=== PATIENT | female | born 1985 | race Caucasian/White ===

== ENCOUNTER 2019-11-23 10:16 | Outpatient (CLI) | payer MEDICAID, SELFPAY ==
[2019-11-23 11:10] LABS: Alanine Aminotransferase 35 U/L (14-59); Albumin Level 3.8 g/dL (3.4-5.0); Alkaline Phosphatase 38 U/L (46-116); Anion Gap 10 mmol/L (8-16); Aspartate Amino Transferase 19 U/L (15-37); Bilirubin,Total 0.8 mg/dL (0.00-1.00); Blood Urea Nitrogen 9 mg/dL (7-18); Calcium 8.8 mg/dL (8.5-10.1); Carbon Dioxide 27 mmol/L (21-32); Chloride 105 mmol/L (98-108); Cholesterol 143 mg/dL (0-200); Estimated Glomerular Filt Rate > 60; Glucose 128 mg/dL (70-99); HDL Direct 38 mg/dL (40-60); LDL Cholesterol Calculated 81 mg/dL (<130); Osmolality Calculated 294 mOsm/kg (285-295); Potassium 4.3 mmol/L (3.5-5.1); Sodium 142 mmol/L (136-145); Triglycerides 118 mg/dL (0-150)
[2019-11-23 11:38] LABS: Hematocrit 44.9 % (35.0-49.0); Hemoglobin 15.4 g/dL (12.0-15.0); Mean Corpuscular HGB Conc 34.3 g/dL (32.0-36.0); Mean Corpuscular Hemoglobin 30.6 pg (27.0-31.0); Mean Corpuscular Volume 89.1 fL (78.0-102.0); Mean Platelet Volume 12.3 fl (9.2-11.8); Platelet Count Result 191 K/mm3 (150-420); Red Blood Count 5.04 M/mm3 (4.20-5.40); Red Cell Distribution Width 12.1 % (11.6-14.4); White Blood Count 9.9 K/mm3 (4.8-10.8)
== END 2019-11-23 10:17 | disposition home or self-care (01) ==
PROVIDERS: PCP Family Medicine; Visit Provider Family Medicine
DX: N92.1 Excessive and frequent menstruation with irregular cycle (principal); E66.3 Overweight
CPT/HCPCS: 36415; 80053; 80061; 85027

== ENCOUNTER 2019-12-15 12:35 | Outpatient (CLI) | payer OTHER, SELFPAY ==
--- NOTE | ~2019-12-15 | US_ITS ---
EXAMINATION: US pelvic complete w TV DATE: 12/15/2019 14:00 INDICATION: Thick and perineal pain. Irregular menstrual cycle. TECHNIQUE: Multiple transabdominal and endovaginal sonographic images of the pelvis were obtained. COMPARISON: None. FINDINGS: The uterus measures 10.4 x 5.0 x 5.4 cm. The endometrial complex measures 7 mm in thickness. The rig ht ovary measures 3.5 x 2.3 x 2.4 cm. 1.7 cm hypoechoic likely cysts/follicle in the right ovary. The left ovary measures 2.6 x 1.8 x 2.8 cm. There is normal vascular flow in the ovaries. There is no fr ee fluid in the pelvis. IMPRESSION: 1. Normal pelvic ultrasound with 1.7 cm right ovarian cyst/follicle. Reviewed, dictated and finalized at location A.
[2019-12-18 07:23] LABS: T4 Thyroxine 7.4 mcg/dL (5.1-11.9)
[2019-12-19 05:48] LABS: LH 2.1 mIU/mL (***); Progesterone 0.4 ng/mL (***)
== END 2019-12-15 12:36 | disposition home or self-care (01) ==
PROVIDERS: PCP Family Medicine; Visit Provider Obstetrics & Gynecology
DX: R10.2 Pelvic and perineal pain (principal); R19.00 Intra-abdominal and pelvic swelling, mass and lump, unspecified site; N92.6 Irregular menstruation, unspecified
CPT/HCPCS: 36415; 76830; 76856; 83001; 83002; 84144; 84436; 84443

== ENCOUNTER 2020-03-01 14:06 | Outpatient (CLI) | payer MEDICAID, SELFPAY ==
[2020-03-02 18:58] LABS: SARS-CoV-2 RNA PCR Negative
== END 2020-03-01 14:07 | disposition home or self-care (01) ==
PROVIDERS: PCP Family Medicine; Visit Provider Family Medicine
DX: Z20.828 Contact with and (suspected) exposure to other viral communicable diseases (principal)
CPT/HCPCS: 87635; C9803; U0003

== ENCOUNTER → 2020-12-17 03:17 | Outpatient (CLI) | payer BC, MEDICAID, SELFPAY ==
[2020-12-17 19:14] LABS: SARS-CoV-2 RNA PCR Negative
== END ==
PROVIDERS: PCP Internal Medicine; Visit Provider Obstetrics & Gynecology
DX: Z20.822 Contact with and (suspected) exposure to COVID-19 (principal)
CPT/HCPCS: C9803; U0003; U0005

== ENCOUNTER 2020-12-17 09:16 | Outpatient (CLI) | payer BC, MEDICAID, SELFPAY ==
[2020-12-17 09:50] LABS: Hematocrit 45.1 % (37.0-47.0); Hemoglobin 15.6 g/dL (12.0-15.0)
== END 2020-12-17 09:17 | disposition home or self-care (01) ==
LOC: ANHSURGERY 09:22
PROVIDERS: PCP Internal Medicine; Visit Provider Obstetrics & Gynecology
DX: Z01.812 Encounter for preprocedural laboratory examination (principal); N92.6 Irregular menstruation, unspecified
CPT/HCPCS: 36415; 85014; 85018

== ENCOUNTER 2020-12-20 01:40 | Day surgery (SDC) | payer BC, MEDICAID, SELFPAY ==
[2020-12-12 11:44] VITALS: BMI 39.1
--- NOTE | 2020-12-17 16:20 | PM.IMHP ---
H&P: HPI History of Present Illness Date/Time: 12/17/20 16:20 35-year-old 2 para 2 admitted for laparoscopic tubal ligation, hysteroscopy, dilatation curettage Hayley ablation. Patient desires permanent and irreversible sterilization. She has had 2 previous vaginal deliveries and understands the permanence and irreversibility of this. She has also had irregular periods and medical therapy has been unhelpful. Risks and benefits of these procedures were reviewed including but not exclusive of , aspiration pneumonia bleeding, bleeding cut and attends fusion, perforation injury to bowel, bladder, ureters, or other internal organs with need for open laparotomy. She received the ACOG handout entitled sterilization for females, hysteroscopy, dilatation curettage respectively. She received the Hayley handout and had all questions answered. She asked to proceed Chief Complaint: desires sterilization and excessive heavy bleeding refractory to medical therapy Review of Systems Review of Systems: All systems reviewed & are unremarkable except as noted in HPI and below [facility] Social History Social History Smoking packs per day: 0.5 Smoking cigarettes per day: 10.0 Years smoked: 10 Smoking pack-years: 5.00 Smoking status: Former smoker Tobacco type: cigarettes and e-cigarettes/vaping Smoking end date: 01/13/14 Additional smoking assessment comments: VAPES NOW Alcohol intake: current Drinks per week: 6 Substance use: never Substance use type: does not use Spiritual care concerns: No Meds Home Medications and Allergies Home Medications Medication Instructions Recorded Confirmed Type sertraline 100 mg PO HS 12/12/20 12/12/20 History Allergies Allergy/AdvReac Type Severity Reaction Status Date / Time PROCHLORPERAZINE EDISYLATE Allergy Severe Siezure Uncoded 12/12/20 11:42 PROCHLORPERAZINE MALEATE Allergy Severe Siezure Uncoded 12/12/20 11:42 Exam Const: General: no acute distress Eyes: General: appearance normal, both eyes and all related structures Neck: Neck: supple and no JVD Thyroid: thyroid normal Resp: Effort & Inspection: normal respiratory effort Auscultation: clear to auscultation bilaterally Cardio: Rate: regular rate Rhythm: regular rhythm GI: Inspection: non-distended GI Palp: Yes Soft to palpation, No Tenderness to palpation present (GI) and No Guarding due to palpation present (GI) Auscultation: normal bowel sounds : External Female Exam: normal external appearance Speculum Exam - Vagina: normal appearance of the vagina Speculum Exam - Cervix: Cervical os closed Bimanual exam- vagina & uterus: enlarged Bimanual Exam- Adnexa, other: normal adnexae Skin: General skin exam: no rashes or lesions noted Extrem: General: normal to inspection and no edema Psych: Mental Status: mental status grossly normal Affect: normal affect Assessment and Plan Additional Plan impression: Multiparous patient with bleeding who desires permanent sterilization and ablation Plan: Laparoscopic tubal ligation and uterine ablation
[2020-12-20] VITALS (9 sets, daily range): BP systolic 122–147; BP diastolic 69–93; PULSE 62–89; RESP 16–23; TEMP 36.4–36.7; O2SAT 95–100
--- NOTE | 2020-12-20 06:02 | WPDHPUPDATE1 ---
History and Physical Update Update Date/Time: 12/20/20 06:02 History and Physical has been reviewed, including an updated exam of the patient. There are NO changes in the patient's condition. Risks, benefits, and alternatives have been discussed and questions answered. Patient agrees to proceed with procedure.
[2020-12-20] MEDS: ACETAMINOPHEN 500 MG TABLET 1000 MG PO (08:45)
[2020-12-20] MEDS: LACTATED RINGERS 1,000 ML 30 ML IV CONT ×2 (08:50→10:34)
--- NOTE | 2020-12-20 09:10 | P.PNAN_ITS ---
Anes - Initial Pre Proc Eval Procedure: Operation Date: 12/20/20 10:00 Proposed Procedures p Laparoscopic Bilateral Tubal Ligation with Fallopian Tube Rings - Kamron Mcclendon MD s Hysteroscopy Dilation and Curettage Endometrial Ablation Hayley - Kamron Mcclendon MD Date/Time: 12/20/20 09:10 Surgeon: Kamron Mcclendon MD Pre Op Diagnosis: desires sterilization, irregular bleeding Patient Data Age: 35 Gender: F Height: 1.75 m Weight: 123.4 kg Last Vital Signs Temp 36.7 C 12/20/20 08:59 Pulse 71 12/20/20 08:59 BP 133/87 12/20/20 08:59 Pulse Ox 98 12/20/20 08:59 Allergies Allergy/AdvReac Type Severity Reaction Status Date / Time PROCHLORPERAZINE EDISYLATE Allergy Severe Siezure Uncoded 12/20/20 08:57 PROCHLORPERAZINE MALEATE Allergy Severe Siezure Uncoded 12/20/20 08:57 Home Medications Medication Instructions Recorded Confirmed Type sertraline 100 mg PO HS 12/12/20 12/20/20 History hydrocodone-acetaminophen 1 tablet PO Q4H PRN #30 tablet 12/20/20 Rx Patient hx anesthesia problems: none Family hx anesthesia problems: none Results Review: All pre-operative results and documents have been reviewed as part of the pre-operative evaluation. [facility], [facility] Past Medical History Medical History Anxiety Depression Diabetes Hypertension Morbid obesity Social History Social History Smoking packs per day: 0.5 Smoking cigarettes per day: 10.0 Years smoked: 10 Smoking pack-years: 5.00 Smoking status: Former smoker Tobacco type: cigarettes and e-cigarettes/vaping Smoking end date: 01/13/14 Additional smoking assessment comments: VAPES NOW Alcohol intake: current Drinks per week: 6 Substance use: never Substance use type: does not use Living arrangements: with family Spiritual care concerns: No Anes - Eval Final PreProcedure Day of Procedure 12/20/20 09:10 Patient weight: morbidly obese Heart: regular rate and rhythm Lungs: clear to auscultation Airway: Mallampati scale class II Neurological: alert and oriented Last oral intake: >/= 8 hours ASA classification: III Emergent: no Anesthetic plan: proceed Anesthesia type and monitoring: general ETT and standard monitoring Results Review: All pre-operative results and documents have been reviewed as part of the pre-operative evaluation. Informed Consent: The patient's anesthetic plan and its attendant risks and benefits were discussed with the patient/family/POA. Questions were solicited and answers provided to the satisfaction of the patient/family/POA.
--- NOTE | 2020-12-20 10:11 | W.PM.PROC2 ---
Procedure Note - Detailed Date of Procedure 12/20/20 Pre-op Diagnosis desires sterilization, irregular bleeding Post-op Diagnosis same Procedure Performed Laparoscopic bilateral tubal ligation with silastic rings/hysteroscopy/dilatation and curettage/endometrial ablation Surgeon Kamron Mcclendon MD Anesthesia general Indications This is 35-year-old multiparous with excessive heavy bleeding who desires permanent sterilization Findings On laparoscopy normal-appearing uterus tubes and ovaries were seen. The gallbladder was enlarged and the liver appeared to be fatty. Description of Procedure The patient was prepped draped in normal sterile fashion placed in the dorsal lithotomy position. Under excellent general trach anesthesia weighted speculum placed in posterior fornix vagina. Anterior lip of the cervix grasped with a single-tooth tenaculum and Dias's cannula inserted attached to be used later for uterine manipulation. At times the bladder of clear urine the weighted speculum was removed. The gloves were changed An infraumbilical incision made the Veress needle passed in the abdomen. Abdomen filled with CO2 gas [id number]. The 5mm trocar advanced under direct visualization assuring no injury. The patient placed in Trendelenburg and a suprapubic incision made the 5mm trocar advanced under direct visualization assuring no injury. The above findings were seen the ovaries tubes and uterus appeared within normal limits. The gallbladder was quite large but not inflamed and the liver appeared fatty in nature. The right fallopian tube was grasped in good knuckle of tube formed with the fallopian tube grasper. Excellent blanching was seen. In like fashion the opposite tube was grasped was midportion good knuckle of tube formed with the band. Blanching was noted the gas was removed from the abdomen and the trocars removed. Incisions closed with 4 glue. Attention was turned to the hysteroscopic portion. The uterus sounded to 8cm. Serial dilatation with fragmented dilators performed followed passes the 5mm visualizing hysteroscope. Normal saline was used as visualizing medium. Thick irregular tissue was seen but no evidence of other abnormalities. The uterus was scraped over the entire 360? until a good grating sound was heard. When that was finished Hayley instrument was placed in the uterus. Endometrium was burned for 2minutes. The instruments removed and the patient was awakened. Blood loss was estimated at5cc. All sponge, needle, instrument counts were correct. There were no immediate complications Implants Silastic bands Estimated Blood Loss 5 Drains No Packing No Pathology yes Complications No immediate complications Condition stable Disposition PACU
--- NOTE | 2020-12-20 10:14 | SUR.OPER ---
[facility] lOT [id number], EXP 2025-06-26. BILATERAL FALLOPIAN TUBES.
[2020-12-20] MEDS: fentaNYL CITRATE INJ (*CRX) 100 MCG/2 ML VIAL 25 MCG IV PUSH ×7 (10:16→10:38)
[2020-12-20] MEDS: HYDROmorphone HCL INJ (*CRX) 1 MG/ML SYR IV PUSH ×2 (10:43→10:50)
[2020-12-20] MEDS: oxyCODONE HCL (*CRX) 5 MG TAB IR PO (11:19)
== END 2020-12-20 12:25 | disposition home or self-care (01) ==
PROVIDERS: PCP Family Medicine; Visit Provider Obstetrics & Gynecology
PROC: (CPT 58671; principal; 2020-12-20 10:00)
PROC: 0U5B8ZZ Destruction of Endometrium, Via Natural or Artificial Opening Endoscopic (ICD-10-PCS; CPT 58563; 2020-12-20 10:00)
DX: N92.6 Irregular menstruation, unspecified (principal); Z30.2 Encounter for sterilization; I10 Essential (primary) hypertension; E11.9 Type 2 diabetes mellitus without complications; F41.8 Other specified anxiety disorders; E66.01 Morbid (severe) obesity due to excess calories; Z68.41 Body mass index [BMI] 40.0-44.9, adult; F17.290 Nicotine dependence, other tobacco product, uncomplicated
CPT/HCPCS: 58563; 58671; 88305; A4264; A9270; J0330; J1100; J1170; J2250; J2405; J2704; J3010; J7030; J7120

== ENCOUNTER 2021-06-09 13:58 | Outpatient (CLI) | payer BC, MEDICAID, SELFPAY ==
[2021-06-09 14:24] LABS: Basophils Percent Auto 0.4 % (0.2-1.2); Eosinophils Absolute Auto 0.2 K/mm3 (0-0.3); Eosinophils Percent Auto 1.9 % (0-4.4); Hematocrit 46.1 % (37.0-47.0); Hemoglobin 16.2 g/dL (12.0-15.0); Immature Granulocyte Absolute 0.04 K/mm3 (0.00-0.031); Immature Granulocyte Percent A 0.4 % (0-0.5); Lymphocytes Absolute Auto 2.07 K/mm3 (0.9-3.2); Lymphocytes Percent Auto 20.4 % (18.3-44.2); Mean Corpuscular HGB Conc 35.1 g/dl (32-36); Mean Corpuscular Hemoglobin 30.9 pg (26-34); Mean Platelet Volume 11.7 fl (7.4-10.4); Monocytes Absolute Auto 0.5 K/mm3 (0.1-0.6); Monocytes Percent Auto 5.1 % (2.6-8.5); Neutrophils Absolute Auto 7.3 K/mm3 (1.3-6.7); Neutrophils Percent Auto 71.8 % (45.5-73.1); Platelet Count Result 180 k/mm3 (150-375); Red Blood Count 5.24 M/mm3 (4.2-5.4); Red Cell Distribution Width 12.3 % (11.5-14.5); White Blood Count 10.2 K/mm3 (4.5-10.0)
== END 2021-06-09 13:59 | disposition home or self-care (01) ==
LOC: ANHSURGERY 14:03
PROVIDERS: PCP Family Medicine; Visit Provider Obstetrics & Gynecology
DX: N92.1 Excessive and frequent menstruation with irregular cycle (principal); Z01.818 Encounter for other preprocedural examination
CPT/HCPCS: 36415; 85025; 86850; 86900; 86901

== ENCOUNTER 2021-06-13 02:03 | Day surgery (SDC) | payer BC, MEDICAID, SELFPAY ==
[2021-06-05 09:47] VITALS: BMI 36.9
--- NOTE | 2021-06-05 10:02 | PC.NURSE ---
Report to the Outpatient Waiting Room, entrance under the green pavilion located off [facility], at time 7:30 on date 06/13/21. OR Time: 9:30. - You and your visitor will be asked a series of questions to screen for COVID 19 for your protection. - A mask is required within the hospital. One visitor will be allowed to accompany the patient into the hospital. Patients visitor will be instructed to remain with patient at all times or leave the building. We will allow the visitor to come back to the postoperative area when patient is ready. Preoperative COVID Testing Requirements: TO E-MAIL COPY OF POSITIVE RESULT No COVID Test needed if: (proof is required; if not received patient will have Rapid Test prior to entry) - Patient has received COVID Vaccine at least 14 days prior to procedure date or - Patient has positive COVID test result within last 90 days of surgery date. COVID Test needed if above criteria is not met If not COVID vaccinated a COVID test must be conducted within 72 hours of surgery and patient is asked to isolate self from time of testing until procedure. You will go to the [facility] for your COVID testing. The [facility] site is located at the corner of [address] from [facility]. You will only be called if COVID results are positive and your surgeon may reschedule your elective surgery date. Patients may have clear liquids (water, carbonated beverages, clear teas, apple juice) until 3 hours prior to surgery (6:30) with a maximum of 20 ounces. - No food from midnight until time of surgery Take the following medications with a SIP of water the morning of surgery: NONE Medications to discontinue per physician: N/A Date to take last dose: N/A Please no make-up, nail syriac, hairspray, perfume, deodorant, or body powder the day of surgery. No jewelry (including any body piercings) or valuables the day of surgery, leave them at home. Please take a shower or bath the night before, or the morning of, surgery with an antibacterial soap. Wear comfortable, loose fitting clothing. - Jewelry must be removed prior to entering the operating room. Rings and piercings that are not removed may be cut off. - The hospital will not accept responsibility for valuables. - Please leave all valuables, including medications, at home the day of surgery. If you are going home after surgery, a licensed class a regional drivers must drive you home. - NO public transportation without another adult. - We recommend that an adult stay with you for 24 hours following discharge. - We also recommend that you do not drive, make important decision, drink alcoholic beverages, or take any drugs that were not prescribed by your health care provider for at least 24 hours after your discharge time. Follow any additional instructions given to you from your surgeon. Telephone instructions given to RAMON SUAZO and asked if any additional questions and then verbalized understanding. Patient advised to call surgeon office or pre surgery nurse liaison [phone] if any additional questions.
--- NOTE | 2021-06-11 07:56 | PM.IMHP ---
H&P: HPI History of Present Illness Date/Time: 06/11/21 07:56 36-year-old 2 para 2 admitted for robotic hysterectomy and bilateral salpingectomy secondary to enlarged uterus dyspareunia and failed ablation. Risks and benefits reviewed including but not exclusive of , aspiration pneumonia, bleeding, transfusion, perforation injury to bowel, bladder, ureters, or other internal organs with need for open laparotomy. She received the ACOG handout entitled hysterectomy as well as de Yris handout. She had all questions answered. She asked to proceed Chief Complaint: Failed ablation with enlarged uterus and pelvic pain Review of Systems Review of Systems: All systems reviewed & are unremarkable except as noted in HPI and below [facility] Past Medical History Medical History Anxiety Current nicotine vaping on some days Depression Diabetes Generalized anxiety disorder History of abnormal cervical Pap smear Hypertension Menorrhagia with irregular cycle Morbid obesity Overweight Surgical History Surgical History Hx of knee surgery No history of previous surgery Social History Social History Smoking packs per day: 0.75 Smoking cigarettes per day: 15.0 Years smoked: 10 Smoking pack-years: 7.50 Smoking status: Current every day smoker Tobacco type: cigarettes and e-cigarettes/vaping Smoking end date: 03/15/13 Additional smoking assessment comments: CURRENTLY VAPING Alcohol intake: former Drinks per week: 10 Alcohol use details: Daily Substance use: never Substance use type: does not use Additional living arrangements comments: . 2 Children. Additional occupation/education comments: Homemaker. Spiritual care concerns: No Meds Home Medications and Allergies Home Medications Medication Instructions Recorded Confirmed Type sertraline 100 mg PO HS 12/12/20 06/05/21 History Allergies Allergy/AdvReac Type Severity Reaction Status Date / Time PROCHLORPERAZINE EDISYLATE Allergy Severe Siezure Uncoded 06/05/21 09:45 PROCHLORPERAZINE MALEATE Allergy Severe Siezure Uncoded 06/05/21 09:45 Compazine Spansules Allergy Unknown Unknown Uncoded 06/05/21 09:45 Exam Const: General: no acute distress Eyes: General: appearance normal, both eyes and all related structures Neck: Neck: supple and no JVD Thyroid: thyroid normal Resp: Effort & Inspection: normal respiratory effort Auscultation: clear to auscultation bilaterally Cardio: Rate: regular rate Rhythm: regular rhythm GI: Inspection: non-distended GI Palp: Yes Soft to palpation, No Tenderness to palpation present (GI) and No Guarding due to palpation present (GI) Auscultation: normal bowel sounds Skin: General skin exam: no rashes or lesions noted Extrem: General: normal to inspection and no edema Psych: Mental Status: mental status grossly normal Affect: normal affect Assessment and Plan Additional Plan Impression: Enlarged uterus and pelvic pain with failed ablation and bleeding Plan: Robotic total vaginal hysterectomy and bilateral salpingectomy
--- NOTE | 2021-06-12 13:47 | P.PNAN_ITS ---
Anes - Initial Pre Proc Eval Procedure: Operation Date: 06/13/21 09:30 Proposed Procedures p Robotic Assisted Total Vaginal Hysterectomy with Bilateral Salpingectomy - Kamron Naranjo MD Date/Time: 06/12/21 13:47 Surgeon: Kamron Naranjo MD Pre Op Diagnosis: excessive irregular bleeding, dysmenn,dyspurenia Patient Data Age: 36 Gender: F Height: 1.75 m Weight: 113.4 kg Allergies Allergy/AdvReac Type Severity Reaction Status Date / Time PROCHLORPERAZINE EDISYLATE Allergy Severe Siezure Uncoded 06/05/21 09:45 PROCHLORPERAZINE MALEATE Allergy Severe Siezure Uncoded 06/05/21 09:45 Compazine Spansules Allergy Unknown Unknown Uncoded 06/05/21 09:45 Home Medications Medication Instructions Recorded Confirmed Type sertraline 100 mg PO HS 12/12/20 06/13/21 History hydrocodone-acetaminophen 1 tablet PO Q4H PRN #30 tablet 06/13/21 Rx Patient hx anesthesia problems: none Family hx anesthesia problems: none Results Review: All pre-operative results and documents have been reviewed as part of the pre-operative evaluation. [facility] Past Medical History Medical History Anxiety Current nicotine vaping on some days Depression Diabetes Generalized anxiety disorder History of abnormal cervical Pap smear Hypertension Menorrhagia with irregular cycle Morbid obesity Overweight Surgical History Surgical History Hx of knee surgery No history of previous surgery Social History Social History Smoking packs per day: 0.75 Smoking cigarettes per day: 15.0 Years smoked: 10 Smoking pack-years: 7.50 Smoking status: Current every day smoker Tobacco type: e-cigarettes/vaping Smoking end date: 03/15/13 Additional smoking assessment comments: vaping Alcohol intake: current Drinks per week: 10 Alcohol use details: Daily Substance use: never Substance use type: does not use Living arrangements: with family Additional living arrangements comments: . 2 Children. Additional occupation/education comments: Homemaker. Spiritual care concerns: No Anes - Eval Final PreProcedure Day of Procedure 06/12/21 13:47 Patient weight: obese Heart: regular rate and rhythm Lungs: clear to auscultation Airway: Mallampati scale class III Neurological: alert and oriented Last oral intake: >/= 8 hours ASA classification: III Emergent: no Anesthetic plan: proceed Anesthesia type and monitoring: general ETT and standard monitoring Results Review: All pre-operative results and documents have been reviewed as part of the pre-operative evaluation. Informed Consent: The patient's anesthetic plan and its attendant risks and benefits were discussed with the patient/family/POA. Questions were solicited and answers provided to the satisfaction of the patient/family/POA.
[2021-06-13] VITALS (12 sets, daily range): BP systolic 97–138; BP diastolic 67–96; PULSE 55–112; RESP 10–20; TEMP 36.3–37.1; O2SAT 97–100
--- NOTE | 2021-06-13 07:08 | WPDHPUPDATE1 ---
History and Physical Update Update Date/Time: 06/13/21 07:08 History and Physical has been reviewed, including an updated exam of the patient. There are NO changes in the patient's condition. Risks, benefits, and alternatives have been discussed and questions answered. Patient agrees to proceed with procedure.
[2021-06-13] MEDS: ACETAMINOPHEN 500 MG TABLET 1000 MG PO (07:37)
[2021-06-13] MEDS: LACTATED RINGERS 1,000 ML 30 ML IV CONT ×2 (08:05→11:04)
[2021-06-13] MEDS: KETOROLAC 15 MG/ML VIAL (*BKC) IV PUSH (08:06)
[2021-06-13] MEDS: ceFAZolin 2 GM/D5W 50 ML 2 GM/50 ML BAG IVPB (09:35)
--- NOTE | 2021-06-13 10:48 | P.OP_ITS ---
Procedure Note - Detailed Date of Procedure 06/13/21 Pre-op Diagnosis excessive irregular bleeding, dysmenn,dyspurenia Post-op Diagnosis Same Procedure Performed Robotic total vaginal hysterectomy and bilateral salpingectomies Surgeon Kamron Naranjo MD Anesthesia General Indications Is a 36-year-old female with excessive heavy bleeding pelvic pain uterus Findings Normal-appearing ovaries bilaterally. Enlarged irregular uterus consistent fibroids. Tubes status post tubal ligation Description of Procedure Patient was prepped draped in the normal sterile fashion placed in the dorsal lithotomy position. Under excellent general trach anesthesia weighted speculum placed in posterior fornix vagina. Anterior lip of cervix grasped with single- tooth tenaculum and the uterus sounded to 9cm. Serial dilatation with fragmented dilators performed followed by passes the 3. 0.5 cold cup and the 8. BLADIMIR. Next the 16 [place] catheter was placed bladder draining clear urine. The weighted speculum and Baron tenaculum were removed and the gloves were changed. A supraumbilical incision made the Veress needle passed in the abdomen. Abdomen filled with CO2 gas [id number]. The 8mm trocar advanced in the abdomen downside visualized no injury seen. Gas reattached patient placed in Trendelenburg. A left and right lateral quadrant incisions made the 8mm trocars advanced under direct visualization assuring no injury. A right upper quadrant incision made the 8mm trocar advanced under direct visualization assuring no injury. The robot was docked. Attention was turned to the console. The left round ligament was grasped, burned, cut. Anteriorly a bladder flap was formed by sharply dissecting the peritoneum and reflecting the bladder laterally to the opposite round ligament which was clamped cramps, burned, cut. Next the left fallopian tube was sharply dissected using monopolar cautery away from the ovarian complex and left attached to the uterine complex. This was repeated on the contralateral side remove the right fallopian tube. The left utero-ovarian ligament was skeletonized to conserve the left ovary this was clamped, burned, cut. And this was then brought to the level of previously cut round ligament. In like fashion conserving the right ovary the utero-ovarian ligament was clamped, burned, cut and brought to level of previously cut round ligament. The cardinal broad ligam ents laterally on the left were clamped, burned, cut hugging the cervix and uterus until the uterine vessels could be seen on the left. These were individually clamped, burned, cut. In like fashion the cardinal and broad ligaments on the right were serially skeletonized clamping burning cutting and hugging the cervix and uterus until the vessels could be seen on the right. These were individually clamped, burned, cut. Blanching of the uterus was noted and a colpotomy incision was made. Uterus cervix and tubes removed through the vagina and blood loss estimated [id number]. The vagina was closed with continuous running 0V lock from lateral edge to lateral edge back to the midline. Irrigation injected again until clear and blood loss estimated at25cc for the entire procedure. The robot was undocked. The gas removed from the abdomen. The incisions closed with 4-0 Monocryl and glue and the patient was awakened. All sponge, needle, instrument counts were correct. There were no immediate complications Estimated Blood Loss 25 Drains No Packing No Pathology Yes Complications No immediate complications Condition Stable Disposition PACU
[2021-06-13] MEDS: fentaNYL CITRATE INJ (*CRX) 100 MCG/2 ML VIAL 25 MCG IV PUSH ×6 (11:13→12:00)
[2021-06-13] MEDS: diphenhydrAMINE HCl INJ 50 MG/ML VIAL 12.5 MG IV PUSH ×2 (11:34→11:53)
--- NOTE | 2021-06-13 12:20 | PC.NURSE ---
Patient transferred to post room #290 per hospital bed. Support person present. Oriented to unit, room, information board, rooming in, admission packet and security measures. Patient verbalizes understanding.
[2021-06-13] MEDS: KETOROLAC 30 MG/ML VIAL (*BKC) IV PUSH ×2 (13:46→19:47)
[2021-06-13] MEDS: HYDROcodone/acetaminophen (*CRX) 10-325 MG TABLET 1 TAB PO ×2 (13:47→21:27)
[2021-06-13] MEDS: SIMETHICONE 80 MG TAB.CHEW PO (16:55)
[2021-06-13] MEDS: DOCUSATE SODIUM 100 MG CAPSULE PO (16:55)
[2021-06-13] MEDS: HYDROcodone/acetaminophen (*CRX) 5-325 MG TABLET 1 TAB PO (17:10)
[2021-06-14 04:30] VITALS: BP 100/54; PULSE 60; RESP 18; TEMP 36.6; O2SAT 98
[2021-06-14 05:11] LABS: Basophils Percent Auto 0.2 % (0.2-1.2); Hematocrit 40.9 % (37.0-47.0); Hemoglobin 13.6 g/dL (12.0-15.0); Immature Granulocyte Absolute 0.06 K/mm3 (0.00-0.031); Immature Granulocyte Percent A 0.5 % (0-0.5); Lymphocytes Absolute Auto 1.98 K/mm3 (0.9-3.2); Lymphocytes Percent Auto 15.4 % (18.3-44.2); Mean Corpuscular HGB Conc 33.3 g/dl (32-36); Mean Corpuscular Hemoglobin 30.5 pg (26-34); Mean Corpuscular Volume 91.7 fl (80-100); Monocytes Absolute Auto 0.7 K/mm3 (0.1-0.6); Monocytes Percent Auto 5.7 % (2.6-8.5); Neutrophils Absolute Auto 10.1 K/mm3 (1.3-6.7); Neutrophils Percent Auto 78.2 % (45.5-73.1); Platelet Count Result 153 k/mm3 (150-375); Red Blood Count 4.46 M/mm3 (4.2-5.4); Red Cell Distribution Width 12.2 % (11.5-14.5); White Blood Count 12.9 K/mm3 (4.5-10.0)
--- NOTE | 2021-06-14 06:37 | P.DS_ITS ---
DS: Admitting Diagnosis Discharge Date 06/14/2021 Admitting Diagnosis enlarged uterus/pelvic pain/ bleeding refractory to medical therapy DS: Summary Hospital Course Hospital Course: patient was admitted for robotic hysterectomy and bilateral salpingectomy. The procedure was unremarkable. Please see the operative report for full details. She remained afebrile. She was up, voiding without difficulty, ambulating, eating regular diet, and generally without complaints. Time Spent with Patient Time attestation: Total time spent providing and/or coordinating discharge services: DS: Data Data Completed and Pending Pending studies at discharge: Pending at discharge 06/13/21 10:26 Surgical [PTH] Routine Labs on day of discharge: Labs from last 24 hours 06/14/21 04:35 WBC 12.9 H RBC 4.46 Hgb 13.6 Hct 40.9 MCV 91.7 MCH 30.5 MCHC 33.3 RDW 12.2 Plt Count 153 MPV 12.0 H Immature Gran % (Auto) 0.5 Neut % (Auto) 78.2 H Lymph % (Auto) 15.4 L Hernando % (Auto) 5.7 Eos % (Auto) 0.0 Baso % (Auto) 0.2 Lymph # (Auto) 1.98 Hernando # (Auto) 0.7 H Eos # (Auto) 0.0 Baso # (Auto) 0.0 Abs Immat Gran (auto) 0.06 H Absolute Neuts (auto) 10.1 H Absolute Nucleated RBC 0.0 Nucleated RBC % 0.0 Discharge Plan Discharge Patient Disposition: Home, Self-Care Stand Alone Forms: General Discharge Instructions Follow-up/Referrals: Kamron Spencer MD [Physician] - Discharge Medications: New hydrocodone-acetaminophen 5-325 mg tablet 1 tablet PO Q4H PRN (Reason: pain) Qty: 30 RF: 0 No Action sertraline 100 mg Tablet 100 mg PO HS RF: 0
--- NOTE | 2021-06-14 06:39 | PM.GYNPNOP ---
AUTO REFINISHER - A/P Postoperative Procedures: Procedures Operation Date: 06/13/21 09:30 Actual Procedure Side Surgeon p Robotic Assisted Total Vaginal Hysterectomy with Bilateral Salpingectomy Bilateral Kamron Naranjo MD Postoperative day: 1 Postoperative status: doing well Postoperative plan: routine post-op care, advance diet and discharge Time Spent With Patient Time: Total time spent is greater than 50% in coordination of care (as documented) at patient's floor/unit and/or counseling patient: Time with patient: less than 15 minutes AUTO REFINISHER- PN:Subj Post-Op Subjective Date/time seen: 06/14/21 06:39 Subjective: patient has no complaints and patient desires discharge Review of Systems Review of Systems: All systems reviewed & are unremarkable except as noted in HPI and below Exam Const: General: no acute distress Eyes: General: appearance normal, both eyes and all related structures Neck: Neck: supple and no JVD Thyroid: thyroid normal Resp: Effort & Inspection: normal respiratory effort Auscultation: clear to auscultation bilaterally Cardio: Rate: regular rate Rhythm: regular rhythm GI: Inspection: non-distended GI Palp: Yes Soft to palpation, No Tenderness to palpation present (GI) and No Guarding due to palpation present (GI) Auscultation: normal bowel sounds : General: Yes bladder normal to palpation External Female Exam: normal external appearance Speculum Exam - Vagina: normal vaginal discharge and No vaginal bleeding Speculum Exam - Cervix: nontender Bimanual exam- vagina & uterus: bladder normal to palpation and No Cervical tenderness present OB/external & speculum: No vaginal bleeding Skin: General skin exam: no rashes or lesions noted Extrem: General: normal to inspection and no edema Psych: Mental Status: mental status grossly normal Affect: normal affect AUTO REFINISHER - PN: Obj Data Vital Signs Vital Signs: Vital Signs - 24 hr 06/13/21 08:11 06/13/21 11:04 06/13/21 11:15 Temperature 97.9 F 97.3 F L Pulse Rate 62 69 61 Respiratory Rate 16 10 L 13 Blood Pressure 119/77 97/85 L 118/96 H Pulse Oximetry 99 100 100 06/13/21 11:30 06/13/21 11:45 06/13/21 12:00 Temperature Pulse Rate 55 L 56 L 61 Respiratory Rate 12 14 20 Blood Pressure 135/88 138/74 131/79 Pulse Oximetry 100 97 100 06/13/21 12:10 06/13/21 12:25 06/13/21 13:00 Temperature 98 F 98.7 F Pulse Rate 60 65 74 Respiratory Rate 12 20 18 Blood Pressure 134/90 129/73 128/70 Pulse Oximetry 100 100 06/13/21 16:00 06/13/21 19:45 06/13/21 23:30 Temperature 98.3 F 98.7 F 98.7 F Pulse Rate 112 H 83 83 Respiratory Rate 18 18 18 Blood Pressure 124/76 109/67 109/67 Pulse Oximetry 99 98 98 06/14/21 04:30 Temperature 97.9 F Pulse Rate 60 Respiratory Rate 18 Blood Pressure 100/54 L Pulse Oximetry 98 Intake/Output Intake/Output: Intake & Output 06/11/21 06/12/21 06/13/21 06/14/21 23:59 23:59 23:59 23:59 Intake Total 2290 690 Output Total 1670 675 Balance 620 15 Meds/Results Medications: Active Medications Generic Name Dose Route Start Last Admin Trade Name Freq PRN Reason Stop Dose Admin Hydrocodone Bitart/Acetaminophen 1 tab 06/13/21 12:12 06/13/21 17:10 Hydrocodone/Acetaminophen (*Crx) 5-325 Mg Tablet PO 1 tab Q3H PRN Administration Pain Rated 5 or Less Hydrocodone Bitart/Acetaminophen 1 tab 06/13/21 12:12 06/13/21 21:27 Hydrocodone/Acetaminophen (*Crx) 10-325 Mg Tablet PO 1 tab Q3H PRN Administration Pain Rated 6 or Greater Docusate Sodium 100 mg 06/13/21 17:00 06/13/21 16:55 Docusate Sodium 100 Mg Capsule PO 100 mg BID WILLIAM Administration Enoxaparin Sodium 40 mg 06/14/21 09:00 Enoxaparin 40 Mg/0.4 Ml Syringe SUB-Q DAILY [facility] Dextrose/Lactated Ringer's 1,000 mls @ 125 mls/hr 06/13/21 12:12 Dextrose 5%/Lactated Ringers IV CONT .Q8H [facility] Ibuprofen 600 mg 06/13/21 12:12 Ibuprofen 600 Mg Tablet PO Q6H PRN Cramp
[2021-06-14 07:05] VITALS: BP 104/72; PULSE 58; RESP 18; TEMP 36.2; O2SAT 100
[2021-06-14] MEDS: DOCUSATE SODIUM 100 MG CAPSULE PO (07:08)
[2021-06-14] MEDS: ENOXAPARIN 40 MG/0.4 ML SYRINGE SUB-Q (07:08)
[2021-06-14] MEDS: HYDROcodone/acetaminophen (*CRX) 10-325 MG TABLET 1 TAB PO (07:09)
[2021-06-14] MEDS: SIMETHICONE 80 MG TAB.CHEW PO (07:16)
== END 2021-06-14 12:10 | disposition home or self-care (01) ==
LOC: ANHSURGERY 07:26 → ANHOB2 12:19
PROVIDERS: PCP Family Medicine; Visit Provider Obstetrics & Gynecology
PROC: (CPT 58552; principal; 2021-06-13 09:30)
DX: N92.1 Excessive and frequent menstruation with irregular cycle (principal); N85.2 Hypertrophy of uterus; N94.6 Dysmenorrhea, unspecified; N94.10 Unspecified dyspareunia; R10.2 Pelvic and perineal pain; F41.8 Other specified anxiety disorders; F17.290 Nicotine dependence, other tobacco product, uncomplicated; E66.9 Obesity, unspecified; Z68.38 Body mass index [BMI] 38.0-38.9, adult
CPT/HCPCS: 58552; S2900; 36415; 85025; 88307; 99199; A9270; J0690; J1100; J1170; J1200; J1650; J1885; J2250; J2405; J2704; J2710; J3010; J7030; J7120

== ENCOUNTER 2021-10-01 16:03 | Emergency (ER) | payer MEDICAID, SELFPAY ==
--- NOTE | ~2021-10-01 | XR_ITS ---
EXAMINATION: XR chest 1V portable DATE: 10/01/2021 16:25 INDICATION: Upper mid to right-sided chest pain. TECHNIQUE: A single frontal view of the chest was obtained. COMPARISON: Chest 2 views 05/26/2016 FINDINGS: The chest demonstrates clear lungs without pneumonia, pleural effusion, or pneumothorax. Th e heart size is normal. IMPRESSION: 1. No acute cardiopulmonary disease. Reviewed, dictated and finalized at location A.
[2021-10-01 16:05] VITALS: BP 143/87; PULSE 74; RESP 20; TEMP 36.3; O2SAT 97
--- NOTE | 2021-10-01 16:11 | ECG_ITS ---
Measurements Intervals [place] Rate: 67 P: 27 MI: 133 QRS: 26 QRSD: 91 T: 3 QT: 402 QTc: 426 Interpretive Statements SINUS RHYTHM BORDERLINE ST-T WAVE ABNORMALITY- INFERIOR LEADS BORDERLINE ECG Electronically Signed On 10-01-2021 22:53:55 CDT by Hakeem Billings D.O.
--- NOTE | 2021-10-01 16:11 | ED.CHESTPAIN ---
HPI - Chest Pain General Chief Complaint: Chest Pain Stated Complaint: chest pain,tightness in chest, headache Time Seen by Provider: 10/01/21 16:11 Source: patient Mode of arrival: ambulatory History of Present Illness HPI narrative: 36-year-old female with a history of anxiety / depression, negative stress test many years ago, status post recent hysterectomy presents to the ER with a 4 hour history of -- anterior chest pain started spontaneously at rest. Pain radiates to the neck and the back. chest pain gets worse with deep breathing -- Feels dizzy and lightheaded. -- frontal headache. -- Feels anxious and stressed from monetary problems at home No shortness of breath. MD complaint: chest pain Onset (ago): hour(s) ( Started 4 hours ago) Prior episodes: No Onset: during rest Pain location: substernal Pain radiation: back and neck Severity: moderate Quality: aching Relieving factors: nothing Exacerbating factors: nothing Treatment prior to arrival: none Related Data Allergies Allergy/AdvReac Type Severity Reaction Status Date / Time PROCHLORPERAZINE EDISYLATE Allergy Severe Siezure Uncoded 10/01/21 16:21 PROCHLORPERAZINE MALEATE Allergy Severe Siezure Uncoded 10/01/21 16:21 Compazine Spansules Allergy Unknown Unknown Uncoded 10/01/21 16:21 Review of Systems Review of Systems: All systems reviewed & are unremarkable except as noted in HPI and below Constitutional: Constitutional: Reports as per HPI and Reports no additional constitutional complaints Eyes: Eyes: Reports as per HPI and Reports no additional eye complaints ENT: Reports system reviewed and no additional complaints, except as documented and Reports as per HPI Cardiovascular: Cardiovascular: Reports as per HPI, Reports no additional cardiovascular complaints and Reports chest pain Respiratory: Respiratory: Reports as per HPI and Reports no additional respiratory complaints Gastrointestinal: Gastrointestinal: Reports as per HPI and Reports no additional gastrointestinal complaints Genitourinary: Genitourinary: Reports no additional female genitourinary complaints and Reports as per HPI Musculoskeletal: Musculoskeletal: Reports no additional musculoskeletal complaints and Reports as per HPI Integumentary/Breasts: Skin/Breast: Reports system reviewed and no additional complaints, except as docu and Reports as per HPI Neurologic: Reports system reviewed and no additional complaints, except as documented and Reports as per HPI Psychiatric: Psychiatric: Reports no additional psychiatric complaints and Reports as per HPI Endocrine: Endocrine: Reports no additional endocrine complaints and Reports as per HPI Hematologic/Lymphatic: Hematologic/Lymphatic: Reports no additional hematologic/lymphatic complaints and Reports as per HPI Allergic/Immunologic: Allergic/Immunologic: Reports no additional allergic/immunologic complaints and Reports as per HPI PMFSH Past Medical History Medical History Anxiety Current nicotine vaping on some days Depression Diabetes Generalized anxiety disorder History of abnormal cervical Pap smear Hypertension Menorrhagia with irregular cycle Morbid obesity Overweight Surgical History Surgical History Hx of knee surgery No history of previous surgery Social History Social History Smoking packs per day: 0.75 Smoking cigarettes per day: 15.0 Years smoked: 10 Smoking pack-years: 7.50 Smoking status: Current every day smoker Tobacco type: e-cigarettes/vaping Smoking end date: 03/15/13 Additional smoking assessment comments: vaping Alcohol intake: current Drinks per week: 10 Alcohol use details: Daily Substance use: never Substance use type: does not use Additional living arrangements comments: . 2 Children. Additional occu
[2021-10-01 16:15] VITALS: PULSE 74
[2021-10-01] MEDS: ALPRAZolam (*CRX) 0.5 MG TABLET PO (16:43)
[2021-10-01 17:00] LABS: Basophils Absolute Auto 0.03 K/mm3 (0.00-0.10); Basophils Percent Auto 0.3 % (0.0-1.0); Eosinophils Absolute Auto 0.22 K/mm3 (0.02-0.50); Eosinophils Percent Auto 2.5 % (1.0-6.0); Hematocrit 41.5 % (35.0-49.0); Hemoglobin 14.3 g/dL (12.0-15.0); Immature Granulocyte Absolute 0.03 K/mm3 (0.00-0.00); Immature Granulocyte Percent A 0.3 % (0.0-0.0); Lymphocytes Absolute Auto 2.09 K/mm3 (1.10-4.50); Lymphocytes Percent Auto 23.9 % (18.0-42.0); Mean Corpuscular HGB Conc 34.5 g/dL (32.0-36.0); Mean Corpuscular Hemoglobin 30.5 pg (27.0-31.0); Mean Corpuscular Volume 88.5 fL (78.0-102.0); Mean Platelet Volume 11.6 fl (9.2-11.8); Monocytes Absolute Auto 0.38 K/mm3 (0.10-0.90); Monocytes Percent Auto 4.3 % (2.0-11.0); Neutrophils Percent Auto 68.7 % (50.0-70.0); Platelet Count Result 158 K/mm3 (150-420); Red Blood Count 4.69 M/mm3 (4.20-5.40); Red Cell Distribution Width 12.5 % (11.6-14.4); White Blood Count 8.8 K/mm3 (4.8-10.8)
[2021-10-01] MEDS: ACETAMINOPHEN 325 MG TABLET 650 MG PO (17:13)
[2021-10-01 17:19] LABS: INR 1.2; Partial Thromboplastin Time 29.3 SEC (23.90-30.70); Prothrombin Time 13.4 Seconds (9.50-12.10)
[2021-10-01 17:27] LABS: D Dimer 0.35 mg/L (0.19-0.50)
[2021-10-01 17:33] LABS: Alanine Aminotransferase 51 U/L (14-59); Albumin Level 3.3 g/dL (3.4-5.0); Alkaline Phosphatase 45 U/L (46-116); Anion Gap 8 mmol/L (8-16); Aspartate Amino Transferase 38 U/L (15-37); Bilirubin,Total 0.6 mg/dL (0.00-1.00); Blood Urea Nitrogen 7 mg/dL (7-18); Calcium 8.3 mg/dL (8.5-10.1); Carbon Dioxide 24 mmol/L (21-32); Chloride 107 mmol/L (98-108); Estimated CRCL calculation 114 ml/min; Estimated Glomerular Filt Rate > 60; Glucose 146 mg/dL (70-99); Osmolality Calculated 289 mOsm/kg (285-295); Potassium 3.6 mmol/L (3.5-5.1); Sodium 139 mmol/L (136-145); Total Protein 6.5 g/dL (6.4-8.2)
[2021-10-01 17:38] LABS: Magnesium 1.8 mg/dL (1.8-2.4); Troponin I 6.3 ng/L (0.00-60.4)
[2021-10-01 17:44] LABS: Add Urine Microscopic? NO; Appearance Urine Clear (Clear); Bilirubin Urine Negative (Negative); Blood Urine Negative (Negative); Color Urine Yellow (Yellow); Glucose Urine UA Negative (Negative); Ketones Urine Negative (Negative); Leukocyte Esterase Ur Negative (Negative); Nitrate Urine Negative (Negative); Protein Urine Negative (Negative); Specific Grav Ur >= 1.030 (1.010-1.020); Urobilinogen Urine 0.2 mg/dL (0.2-1.0)
[2021-10-01 18:00] VITALS: TEMP 36.4
== END 2021-10-01 18:10 | disposition home or self-care (01) ==
PROVIDERS: Emergency Provider Internal Medicine Critical Care Medicine; PCP Family Medicine
DX: R07.9 Chest pain, unspecified (principal); F41.9 Anxiety disorder, unspecified
CPT/HCPCS: 36415; 71045; 80053; 81003; 83735; 84484; 85025; 85380; 85610; 85730; 93005; 99284; A9270

== ENCOUNTER 2022-02-13 09:45 | Outpatient (CLI) | payer BC, SELFPAY ==
--- NOTE | ~2022-02-13 | MMUS_ITS ---
EXAMINATION: MM diagnostic ankita BI w nalini, US breast LT limited HISTORY: Palpable lump in the lower outer quadrant of the left breast. TECHNIQUE: Craniocaudal, mediolateral, and mediolateral oblique 3-D tomosynthesis images of the breas ts were performed and synthetic 2-D images were generated. CAD analysis was submitted and interpreted . High resolution limited left breast ultrasound was performed. COMPARISON: None, baseline BREAST PARENCHYMAL COMPOSITION: There are scattered areas of fibroglandular density. FINDINGS: MAMMOGRAPHIC FINDINGS: No suspicious mass, calcification, or architectural distortion are identified in either breast to sug gest malignancy. No mammographic correlate is identified for the reported palpable abnormality of the left breast. ULTRASOUND: There is no evidence of focal abnormal solid or cystic mass in the vicinity of the reported palpable abnormality of concern. IMPRESSION: 1. No specific mammographic or sonographic correlate is identified for the reported palpable abnormal ity of concern. Further evaluation at this time should be based on clinical assessment. Continued fol low-up physical examination is recommended. 2. Recommend routine screening mammography beginning at age 40. BI-RADS Category 1: Negative Reviewed, dictated and finalized at location A. REPAIRER IMPRESSION: 1. No specific mammographic or sonographic correlate is identified for the repo rted palpable abnormality of concern. Further evaluation at this time should be based on clinical assessment. Continued follow-up physical examination is scooter mmended. 2. Recommend routine screening mammography beginning at age 40. BI-RADS Category 1: Negative
== END 2022-02-13 09:46 | disposition home or self-care (01) ==
LOC: CHSIMG 09:47
PROVIDERS: PCP Family Medicine; Visit Provider Family Medicine
DX: N63.23 Unspecified lump in the left breast, lower outer quadrant (principal)
CPT/HCPCS: 76642; 77062; 77066; G0279

== ENCOUNTER 2022-07-09 09:57 | Outpatient (CLI) | payer BC, SELFPAY ==
--- NOTE | ~2022-07-09 | MR_ITS ---
MRI of the right knee Clinical history: Pain and swelling Technique: Coronal proton density and proton density-weighted images, sagittal proton-density and T2 fat-sat images, and axial proton-density fat-saturated images were acquired. Findings: Anterior and posterior cruciate ligaments are intact. Medial collateral ligament and the la teral collateral ligament complex are intact. Popliteus tendon is intact. There is complex, probably horizontal tear of the posterior horn and body of the medial meniscus. The re is horizontal tear involving the body segment of the lateral meniscus. There is focal moderate chondromalacia at the central aspect of the medial femoral condyle. There is mild chondromalacia at the inner aspect of the lateral tibial plateau. There is mild to moderate claude dromalacia along the lateral patellar facet. Small tricompartmental osteophytes are present. Extensor mechanism is intact. Moderate to large joint effusion present. No Chavarria's cyst. Impression: Complex tearing of the posterior horn and body of the medial meniscus. Horizontal tear of the body segment of the lateral meniscus. Mild tricompartmental osteoarthritis. Moderate to large joint effusion. Reviewed, dictated and finalized at location . Impression: Complex tearing of the posterior horn and body of the medial meniscus. Horizontal tear of the body segment of the lateral meniscus. Mild tricompartmental osteoarthritis. Moderate to large joint effusion.
== END 2022-07-09 09:58 | disposition home or self-care (01) ==
LOC: CHSIMG 09:59
PROVIDERS: PCP Family Medicine; Visit Provider Family Medicine
DX: S83.206A Unspecified tear of unspecified meniscus, current injury, right knee, initial encounter (principal); S83.231A Complex tear of medial meniscus, current injury, right knee, initial encounter; S83.281A Other tear of lateral meniscus, current injury, right knee, initial encounter; M17.11 Unilateral primary osteoarthritis, right knee; M25.461 Effusion, right knee
CPT/HCPCS: 73721

== ENCOUNTER 2022-11-11 13:42 | Outpatient (CLI) | payer BC, SELFPAY ==
[2022-11-11 13:56] LABS: Basophils Absolute Auto 0.05 K/mm3 (0.00-0.10); Basophils Percent Auto 0.5 % (0.0-1.0); Eosinophils Absolute Auto 0.26 K/mm3 (0.02-0.50); Eosinophils Percent Auto 2.6 % (1.0-6.0); Hemoglobin 14.5 g/dL (12.0-15.0); Immature Granulocyte Absolute 0.02 K/mm3 (0.00-0.00); Immature Granulocyte Percent A 0.2 % (0.0-0.0); Lymphocytes Absolute Auto 2.67 K/mm3 (1.10-4.50); Lymphocytes Percent Auto 26.2 % (18.0-42.0); Mean Corpuscular HGB Conc 35.4 g/dL (32.0-36.0); Mean Corpuscular Hemoglobin 31.9 pg (27.0-31.0); Mean Corpuscular Volume 90.1 fL (78.0-102.0); Mean Platelet Volume 11.6 fl (9.2-11.8); Monocytes Absolute Auto 0.62 K/mm3 (0.10-0.90); Monocytes Percent Auto 6.1 % (2.0-11.0); Neutrophils Absolute Auto 6.6 K/mm3 (1.7-7.2); Neutrophils Percent Auto 64.4 % (50.0-70.0); Platelet Count Result 167 K/mm3 (150-420); Red Blood Count 4.55 M/mm3 (4.20-5.40); Red Cell Distribution Width 12.1 % (11.6-14.4); White Blood Count 10.2 K/mm3 (4.8-10.8)
[2022-11-11 14:46] LABS: Alanine Aminotransferase 35 U/L (14-59); Albumin Level 3.8 g/dL (3.4-5.0); Alkaline Phosphatase 40 U/L (46-116); Anion Gap 10 mmol/L (8-16); Aspartate Amino Transferase 21 U/L (15-37); Bilirubin,Total 0.5 mg/dL (0.00-1.00); Blood Urea Nitrogen 11 mg/dL (7-18); Calcium 8.8 mg/dL (8.5-10.1); Carbon Dioxide 26 mmol/L (21-32); Chloride 104 mmol/L (98-108); Estimated Glomerular Filt Rate > 60; Glucose 99 mg/dL (70-99); Iron 108 ug/dL (50-170); Osmolality Calculated 289 mOsm/kg (285-295); Potassium 4.4 mmol/L (3.5-5.1); Sodium 140 mmol/L (136-145); Total Protein 6.8 g/dL (6.4-8.2)
[2022-11-14 13:46] LABS: Vitamin D 25 Hydroxy 23 ng/mL (30-100)
== END 2022-11-11 13:43 | disposition home or self-care (01) ==
LOC: CHSLAB 13:45
PROVIDERS: PCP Family Medicine; Visit Provider Nurse Practitioner Family
DX: R42 Dizziness and giddiness (principal); Z79.899 Other long term (current) drug therapy
CPT/HCPCS: 36415; 80053; 82306; 83540; 85025

== ENCOUNTER 2022-12-08 12:16 | Outpatient (CLI) | payer BC, SELFPAY ==
[2022-12-08 13:03] LABS: Influenza A QL RT-PCR Negative (Negative); Influenza B QL RT-PCR Negative (Negative); SARS-CoV-2 RNA PCR Negative (Negative)
== END 2022-12-08 12:17 | disposition home or self-care (01) ==
LOC: CHSLAB 12:19
PROVIDERS: PCP Family Medicine; Visit Provider Nurse Practitioner Family
DX: R05.9 Cough, unspecified (principal)
CPT/HCPCS: 87636

== ENCOUNTER 2023-02-09 13:55 | Outpatient (CLI) | payer BC, SELFPAY ==
[2023-02-09] MEDS: SODIUM CHLORIDE 0.9% IV 1,000 ML 1000 ML IVPB (14:34)
--- NOTE | 2023-02-09 14:38 | PC.NURSE ---
pt ambulated to floor without assistance. Denies dizziness, nausea. Alert and oriented. T97.2 P62 97% on RA 128/81 in R arm. Saline lock put in without difficulty. Pt oriented to call light system and asked to call if they needed to get up.
--- NOTE | 2023-02-09 15:57 | PC.NURSE ---
Patient's IV fluids completed. Patient states she feels a little better. IV discontinued and pressure dressing applied. Nurse explained IV site care. Patient stated understanding, Patient able to ambulated to car.
== END 2023-02-09 13:56 | disposition home or self-care (01) ==
PROVIDERS: PCP Family Medicine; Visit Provider Family Medicine
DX: E86.0 Dehydration (principal)
CPT/HCPCS: 96360; J7030

== ENCOUNTER 2023-03-02 12:17 | Outpatient (NON) | payer BC, SELFPAY ==
[2023-03-04 21:20] LABS: Lactoferrin, Stool Negative (Negative)
[2023-03-06 06:41] LABS: Immunoglobulin A 115 mg/dL (47-310); TTG IGA AB <1.0 U/mL (<15.0)
== END 2023-03-02 12:18 | disposition home or self-care (01) ==
LOC: CHSLAB 12:19
PROVIDERS: Visit Provider Family Medicine
DX: R35.0 Frequency of micturition (principal); K52.9 Noninfective gastroenteritis and colitis, unspecified
CPT/HCPCS: 36415; 82784; 83516; 83630; 87045; 87086; 87088; 87427; 87449; 87493

== ENCOUNTER 2023-03-02 16:13 | Outpatient (CLI) | payer BC, SELFPAY | END 2023-03-02 16:14 | disposition home or self-care (01) | LOC: CHSLAB 16:14 | PROVIDERS: PCP Family Medicine; Visit Provider Family Medicine | DX: K52.9 Noninfective gastroenteritis and colitis, unspecified (principal) | CPT/HCPCS: 99199 ==

== ENCOUNTER 2023-07-29 13:03 | Outpatient (CLI) | payer BC, SELFPAY ==
--- NOTE | ~2023-07-29 | MM_ITS ---
EXAMINATION: MM screening ankita BI w nalini HISTORY: Screening mammogram TECHNIQUE: Craniocaudal and mediolateral oblique 3-D tomosynthesis images were obtained and synthetic 2-D images were generated. CAD analysis was submitted and interpreted. COMPARISON: 02/13/2022 diagnostic bilateral mammogram and limited left breast ultrasound BREAST PARENCHYMAL COMPOSITION: There are scattered areas of fibroglandular density. FINDINGS: There is no evidence of suspicious mass, calcification, or architectural distortion to sugg est malignancy in either breast. There has been no suspicious interval change. IMPRESSION: 1. No mammographic evidence of malignancy. 2. Recommend routine screening mammography in one year. BI-RADS Category 1: Negative Reviewed, dictated and finalized at location B.
== END 2023-07-29 13:04 | disposition home or self-care (01) ==
LOC: CHSIMG 13:04
PROVIDERS: PCP Family Medicine; Visit Provider Family Medicine
DX: Z12.31 Encounter for screening mammogram for malignant neoplasm of breast (principal)
CPT/HCPCS: 77063; 77067

== ENCOUNTER 2024-09-06 15:31 | Outpatient (CLI) | payer OTHER, SELFPAY ==
[2024-09-06 15:50] LABS: Basophils Absolute Auto 0.06 K/mm3 (0.00-0.10); Basophils Percent Auto 0.6 % (0.0-1.0); Eosinophils Percent Auto 2.8 % (1.0-6.0); Hematocrit 43.7 % (35.0-49.0); Hemoglobin 14.9 g/dL (12.0-15.0); Immature Granulocyte Absolute 0.04 K/mm3 (0.00-0.00); Immature Granulocyte Percent A 0.4 % (0.0-0.0); Lymphocytes Absolute Auto 2.43 K/mm3 (1.10-4.50); Lymphocytes Percent Auto 22.3 % (18.0-42.0); Mean Corpuscular HGB Conc 34.1 g/dL (32-36); Mean Corpuscular Hemoglobin 29.1 pg (27.0-31.0); Mean Corpuscular Volume 85.4 fL (78.0-102.0); Mean Platelet Volume 11.7 fl (9.2-11.8); Monocytes Absolute Auto 0.73 K/mm3 (0.10-0.90); Monocytes Percent Auto 6.7 % (2.0-11.0); Neutrophils Absolute Auto 7.32 K/mm3 (1.70-7.20); Neutrophils Percent Auto 67.2 % (50.0-70.0); Platelet Count Result 183 K/mm3 (150-420); Red Blood Count 5.12 M/mm3 (4.20-5.40); Red Cell Distribution Width 12.5 % (11.6-14.4); White Blood Count 10.9 K/mm3 (4.8-10.8)
[2024-09-06 15:58] LABS: Alanine Aminotransferase 24 U/L (6-35); Albumin Level 4.1 g/dL (3.5-5.1); Alkaline Phosphatase 45 U/L (38-126); Anion Gap 6 mmol/L (4-12); Aspartate Amino Transferase 27 U/L (14-36); Bilirubin,Total 0.6 mg/dL (0.2-1.3); Blood Urea Nitrogen 7 mg/dL (7-17); Calcium 8.8 mg/dL (8.4-10.2); Carbon Dioxide 28 mmol/L (22-30); Chloride 107 mmol/L (98-107); Estimated Glomerular Filt Rate > 60; Glucose 95 mg/dL (65-110); Osmolality Calculated 290 mOsm/kg (285-295); Potassium 4.5 mmol/L (3.4-5.0); Sodium 141 mmol/L (137-145); Total Protein 7.1 g/dL (6.3-8.2)
[2024-09-06 16:03] LABS: Add Urine Microscopic? NO; Appearance Urine Clear (Clear); Bilirubin Urine Negative (Negative); Blood Urine Negative (Negative); Color Urine Yellow (Yellow); Glucose Urine UA Negative (Negative); Ketones Urine Trace (Negative); Leukocyte Esterase Ur Negative (Negative); Nitrate Urine Negative (Negative); Protein Urine Negative (Negative); Urobilinogen Urine 0.2 mg/dL (0.2-1.0)
[2024-09-08 15:57] LABS: CRP 1.9 mg/dL (<1.0); Lipase 99 U/L (23-300)
== END 2024-09-06 15:32 | disposition home or self-care (01) ==
PROVIDERS: PCP Nurse Practitioner Family; Visit Provider Nurse Practitioner Family
DX: R19.7 Diarrhea, unspecified (principal); R10.9 Unspecified abdominal pain; R10.823 Right lower quadrant rebound abdominal tenderness
CPT/HCPCS: 36415; 80053; 81003; 83690; 85025; 86140

== ENCOUNTER 2024-09-07 14:20 | Outpatient (CLI) | payer OTHER, SELFPAY ==
--- NOTE | ~2024-09-07 | US_ITS ---
COMPLETE ABDOMINAL ULTRASOUND Ordering provider: Osvaldo Hines APRN History: . R10.9 - Unspecified abdominal pain . Comparison: None. FINDINGS: LIVER: Normal size and increased echogenicity. No focal hepatic lesions or perihepatic fluid collecti ons are identified. GALLBLADDER: Hyperechoic nonmobile foci are seen in the neck of the gallbladder with back shadowing. The largest stone measures 1.5 x 1.1 cm. No evidence for sludge, gallbladder wall thickening or pericholecystic fluid collections. A negative sonographic Srivastava's sign was noted. BILIARY DUCTS: No evidence for intra or extrahepatic biliary dilation. Common bile duct measures 4.3 mm in diameter which is within normal limits. PANCREAS: Normal echotexture and size. SPLEEN: Normal size, echotexture and contour and measures 12.5 cm in length. KIDNEYS: Right measures 11.7 x 3.8 x 5.4 cm in length and the left 14.2x 4.6x 5 cm in length. There i s no evidence for hydronephrosis, solid renal mass, renal calculi or perinephric fluid collections. N o renal cysts. UPPER ABDOMINAL AORTA: Normal in caliber. IVC: Patent. FREE FLUID: None. IMPRESSION: Fat infiltration of the liver. Cholelithiasis. Otherwise Unremarkable complete ultrasound of the abdo men. Reviewed, dictated and finalized at location A. IMPRESSION: Fat infiltration of the liver. Cholelithiasis. Otherwise Unremarkable complete ultrasound of the abdomen.
== END 2024-09-07 14:21 | disposition home or self-care (01) ==
LOC: CHSIMG 14:21
PROVIDERS: PCP Nurse Practitioner Family; Visit Provider Nurse Practitioner Family
DX: R10.823 Right lower quadrant rebound abdominal tenderness (principal); R10.9 Unspecified abdominal pain; K76.0 Fatty (change of) liver, not elsewhere classified; K80.20 Calculus of gallbladder without cholecystitis without obstruction
CPT/HCPCS: 76700

== ENCOUNTER 2024-09-21 07:26 | Outpatient (CLI) | payer OTHER, SELFPAY ==
--- NOTE | ~2024-09-21 | CT_ITS ---
CLINICAL INDICATION: Right lower quadrant pain COMPARISON: 04/08/2019. Reference is also made to ultrasound examinations dated 09/07/2024 and dating b ack to 12/15/2019. TECHNIQUE: Multiple contiguous axial images of the abdomen and pelvis were performed without the admi nistration of intravenous contrast The dose-length product (DLP) was 1308.40 mGy-cm. Automated exposure control and iterative reconstruction technique were employed. FINDINGS/OBSERVATIONS: Visualized lower thorax: The bilateral lung bases are clear. The heart is of normal size, without pericardial effusion. Small hiatal hernia is present. Liver: The liver demonstrates homogeneously decreased attenuation (consistent with fatty infiltration) and i s not enlarged. Gallbladder and biliary system: The gallbladder is only minimally distended, contains 2 dependent 9 mm stones and is otherwise unrema rkable. Pancreas: Limited evaluation of the pancreas secondary to the lack of intravenous contrast. Spleen: The spleen demonstrates homogeneous attenuation and is borderline enlarged measuring 13 cm in longitu dinal dimension. Kidneys: Increased attenuation within the renal pelvis of the bilateral kidneys, left greater than ri ght for which hematuria is suspected. The remainder of the bilateral kidneys are otherwise unremarkable, without hydronephrosis or renal ca lculi. Adrenal glands: Unremarkable. Gastrointestinal tract: Fecal stasis within the colon. Appendix: The air-filled appendix is of normal caliber (axial series, images 136 through 147). Vasculature: Unremarkable. Lymph nodes: Limited evaluation without intravenous contrast. Pelvic structures: The bladder is distended. Heterogeneous attenuation within the bladder lumen, demonstrating increased attenuation within the de pendent portion of the bladder with decreased attenuation along its anterior third. Hematuria versus urinary sediment is suspected. The uterus is either surgically absent or markedly atrophic. Body wall and musculoskeletal: Small fat-containing umbilical hernia. Degenerative disease at the level of L5/S1 with osteophyte formation, disc space narrowing, endplate changes and facet arthropathy. The remaining levels of the lumbosacral spine are unremarkable. IMPRESSION: Normal appendix. Findings within the renal pelvis of the bilateral kidneys as well as within the dependent portion of the bladder for which either hematuria or dense urinary sediment is suspected. Please correlate these findings with the urinalysis for further evaluation. Reviewed, dictated and finalized at location A. IMPRESSION: Normal appendix. Findings within the renal pelvis of the bilateral kidneys as well as within the dependent portion of the bladder for which either hematuria or dense urinary s ediment is suspected. Please correlate these findings with the urinalysis for further evaluation.
--- OUTSIDE RECORDS SUMMARY | 2024-09-21 07:29 | XMS_ITS | Encounter Summary ---
Author Organization [facility] Address [facility] [place] [address] Care Team Providers Care Technical System Analyst Name Role Phone Johnny Dominguez DO Primary Care Provider [phone] Encounter Details Date Type Department Care Team (Late st Contact Info) Description 08/20/2018 Abstract SFL CONVERSION [address] [place] [address] , Generic Conversion, Social History Tobacco Use Types Packs/Day Years Used Date Smoking Tobacco: Never Assessed Comments Unknown Sex and Gender Information Value Date Recorded Sex Assigned at Not on file Legal Sex Female 12:00 PM CDT Gender Identity Not on file Sexual Orientation Not on file documented as of this encounter Plan of Treatment Not on file documented as of this encounter Visit Diagnoses Not on filedocumented in this encounter Care Teams Technical System Analyst Relationship Specialty Start Date End Date Johnny Dominguez DO [address] [place] [address] PCP - General FAMILY PRACTICE 07/27/22 documented as of this encounter
--- OUTSIDE RECORDS SUMMARY | 2024-09-21 07:29 | XMS_ITS | Clinical Summary ---
Author Organization [facility] Address [facility] [place] [address] Care Team Providers Care Gunsmith Apprentice Name Role Phone Alberto Johnnyta SMALL Primary Care Provider [phone] Allergies Active Allergy Reactions Criticality Noted Date Comments Prochlorperazine Seizure 07/27/2022 Medications sertraline (ZOLOFT) 100 MG tablet 05/11/2022 Active Active Problems Problem Noted Date Diagnosed Date Primary osteoarthritis of right knee 07/31/2022 Family History Medical History Relation Comments Hypertension Father Relation Status Comments Father Mother Alive Social History Tobacco Use Types Packs/Day Years Used Date Smoking Tobacco: Never Smokeless Tobacco: Never Comments Unknown Sex and Gender Information Value Date Recorded Sex Assigned at Not on file Legal Sex Female 12:00 PM CDT Gender Identity Not on file Sexual Orientation Not on file Last Filed Vital Signs Vital Sign Reading Time Taken Comments Blood Pressure - - Pulse - - Temperature - - Respiratory Rate - - Oxygen Saturation - - Inhaled Oxygen Concentration - - Weight 113.4 kg (250 lb) 07/27/2022 2:21 PM CDT Height 175.3 cm (5' 9) 07/27/2022 2:21 PM CDT Body Mass Index 36.92 07/27/2022 2:21 PM CDT Plan of Treatment Health Maintenance Due Date Last Done Comments Annual Physical 1987 Hepatitis C 2002 COVID-19 Vaccine ( season) 2023 Mammogram Screening 2024 DTaP, Tdap and Td Vaccines (8 - Td or Tdap) 07/31/2031 07/30/2021, 10/01/2014, 11/01/1996, Additional history exists Hepatitis B Vaccines Completed 05/16/1999, 12/13/1998, 10/02/1998 HPV Vaccines Aged Out No longer eligi ble based on patient's age to complete this topic Meningococcal B Vaccine Aged Out No l onger eligible based on patient's age to complete this topic Meningococcal Vaccine Aged Out No terrell israel eligible based on patient's age to complete this topic Pneumococcal Vaccine: Pediatrics (0 to 5 Years) and At-Risk Patients (6 to 49 Years) Aged Out No longer eligible based on patient's age to complete this topic RSV Immunizations Under 20 Months Aged Out No longer eligible based on patient's age to complete this topic Insurance [place] [address] [place] [address] Care Teams Gunsmith Apprentice Relationship Specialty Start Date End Date Johnny Dominguez DO [address] [place] [address] PCP - General FAMILY PRACTICE 07/27/22
== END 2024-09-21 07:27 | disposition home or self-care (01) ==
LOC: CHSIMG 07:27
PROVIDERS: PCP Family Medicine; Visit Provider Nurse Practitioner Family
DX: R11.2 Nausea with vomiting, unspecified (principal); R10.823 Right lower quadrant rebound abdominal tenderness; N83.209 Unspecified ovarian cyst, unspecified side
CPT/HCPCS: 74176

== ENCOUNTER 2024-09-27 16:48 | Outpatient (NON) | payer OTHER, SELFPAY ==
--- OUTSIDE RECORDS SUMMARY | 2024-09-27 16:51 | XMS_ITS | Encounter Summary ---
Author Organization [facility] Address [facility] [place] [address] Care Team Providers Care Signwriter Name Role Phone Johnny Dominguez DO Primary Care Provider [phone] Encounter Details Date Type Department Care Team (Late st Contact Info) Description 08/20/2018 Abstract SFL CONVERSION [address] [place] [address] , Generic Conversion, Social History Tobacco Use [...] on filedocumented in this encounter Care Teams Signwriter Relationship Specialty Start Date End Date Johnny Dominguez DO [address] [place] [address] PCP - General FAMILY PRACTICE 07/27/22 documented as of this encounter
--- OUTSIDE RECORDS SUMMARY | 2024-09-27 16:51 | XMS_ITS | Clinical Summary ---
Author Organization [facility] Address [facility] [place] [address] Care Team Providers Care Loss Prevention Supervisor Name Role Phone Alberto Johnnyta SMALL Primary Care Provider [phone] Allergies Active Allergy Reactions Criticality Noted Date [...] age to complete this topic Insurance [place] [address] [place] [address] Care Teams Loss Prevention Supervisor Relationship Specialty Start Date End Date Johnny Dominguez DO [address] [place] [address] PCP - General FAMILY PRACTICE 07/27/22
[2024-09-27 16:59] LABS: Add Urine Microscopic? NO; Appearance Urine Clear (Clear); Glucose Urine UA Negative (Negative); Leukocyte Esterase Ur Negative LEU/UL (Negative); Nitrate Urine Negative (Negative); Specific Grav Ur 1.015 (1.010-1.020)
== END 2024-09-27 16:49 | disposition home or self-care (01) ==
LOC: CHSLAB 16:50
PROVIDERS: Visit Provider Nurse Practitioner Family
DX: Z87.898 Personal history of other specified conditions (principal)
CPT/HCPCS: 81003

== ENCOUNTER 2024-10-02 14:55 | Outpatient (CLI) | payer OTHER, SELFPAY ==
--- NOTE | ~2024-10-02 | XR_ITS ---
XR lumbar spine min 4V 10/02/2024 15:12 Indication: Low back pain Procedure: 5 views lumbar spine Comparison: No prior studies for comparison. Findings: No fracture, subluxation or dislocation. Pedicles intact. Vertebral body heights are mainta ined. There is disc narrowing at L5-S1. No evidence for spondylolisthesis. Sacral foramen are symmetr ic. Impression: 1: Mild lumbar spondylosis. Reviewed, dictated and finalized at location A. Impression: 1: Mild lumbar spondylosis.
--- OUTSIDE RECORDS SUMMARY | 2024-10-02 15:00 | XMS_ITS | Clinical Summary ---
Author Organization [facility] Address [facility] [place] [address] Care Team Providers Care Cake Knocker Name Role Phone Alberto Johnnyta SMALL Primary Care Provider [phone] Allergies Active Allergy Reactions Criticality Noted Date [...] Comments Annual Physical 1987 Hepatitis C 2002 HPV Vaccines (1 - 3-dose SCDM series) 2011 COVID-19 Vaccine ( season) 2023 Mammogram Screening 2024 DTaP, Tdap and Td Vaccines (8 - Td or Tdap) 07/31/2031 07/30/2021, 10/01/2014, 11/01/1996, Additional history exists Hepatitis B Vaccines Completed 05/16/1999, 12/13/1998, 10/02/1998 Meningococcal B Vaccine Aged Out No l [...] age to complete this topic Insurance MEDICAID [facility] Care Teams Cake Knocker Relationship Specialty Start Date End Date Johnny Dominguez DO [address] [place] [address] PCP - General FAMILY PRACTICE 07/27/22
--- OUTSIDE RECORDS SUMMARY | 2024-10-02 15:00 | XMS_ITS | Encounter Summary ---
Author Organization [facility] - [facility] Address [facility] [place] [address] Care Team Providers Care Service Manager Name Role Phone Johnny Dominguez DO Primary Care Provider Encounter Details Date Type Department Care Team (Late st Contact Info) Description 08/20/2018 Abstract SFL CONVERSION [address] [place] [address] , Generic Conversion, Social History Tobacco Use [...] on filedocumented in this encounter Care Teams Service Manager Relationship Specialty Start Date End Date Johnny Dominguez DO [address] [place] [address] PCP - General FAMILY PRACTICE 07/27/22 documented as of this encounter
== END 2024-10-02 14:56 | disposition home or self-care (01) ==
LOC: CHSIMG 14:56
PROVIDERS: PCP Nurse Practitioner Family; Visit Provider Nurse Practitioner Family
DX: M54.50 Low back pain, unspecified (principal); M43.06 Spondylolysis, lumbar region
CPT/HCPCS: 72110

== ENCOUNTER 2024-10-05 12:32 | Outpatient (CLI) | payer OTHER, SELFPAY ==
--- NOTE | ~2024-10-05 | XR_ITS ---
EXAM/ PROCEDURE: XR hip BI wo pelvis - 10/05/2024 13:00 CDT HISTORY: 39 years old Female with M25.551 - Pain in right hip COMPARISON: None available TECHNIQUE: Three view(s) FINDINGS/ IMPRESSION: There are no fractures or dislocations.Joint spaces are within normal limits. Reviewed, dictated and finalized at location A.
--- NOTE | ~2024-10-05 | US_ITS ---
EXAMINATION: US pelvic complete w TV INDICATION: Right-sided pelvic pain Comparison:Ultrasound dated 12/15/2019 TECHNIQUE: Multiple transabdominal and endovaginal sonographic images of the pelvis performed. FINDINGS: The uterus uterus is surgically absent. The right ovary measures 3.7 x 3.2 x 2.1 cm and the left ovary measures 2.8 x 2.1 x 2.5 cm. There ar e small follicles in each ovary. There is a right ovarian cyst measuring 1.4 cm. Normal doppler signa l in both ovaries. There is no free fluid in the pelvis. There are no abnormal masses seen on either side. IMPRESSION: 1. Simple right ovarian cyst measuring 1.4 cm. Reviewed, dictated and finalized at location A.
--- OUTSIDE RECORDS SUMMARY | 2024-10-05 12:34 | XMS_ITS | Clinical Summary ---
Author Organization [facility] Address [facility] [place] [address] Care Team Providers Care Help Desk Team Leader Name Role Phone Alberto Johnnyta SMALL Primary Care Provider [phone] Allergies Active Allergy Reactions Criticality Noted Date [...] Insurance MEDICAID [facility] Care Teams Help Desk Team Leader Relationship Specialty Start Date End Date Johnny Dominguez DO [address] [place] [address] PCP - General FAMILY PRACTICE 07/27/22
--- OUTSIDE RECORDS SUMMARY | 2024-10-05 12:34 | XMS_ITS | Encounter Summary ---
Author Organization [facility] - [facility] Address [facility] [place] [address] Care Team Providers Care Agronomy Technician Name Role Phone Johnny Dominguez DO Primary Care Provider [phone] Encounter Details Date Type Department Care Team (Late st Contact Info) Description 08/20/2018 Abstract SFL CONVERSION [address] [place] [address] , Generic Conversion, Social History Tobacco Use [...] on filedocumented in this encounter Care Teams Agronomy Technician Relationship Specialty Start Date End Date Johnny Dominguez DO [address] [place] [address] PCP - General FAMILY PRACTICE 07/27/22 documented as of this encounter
== END 2024-10-05 12:33 | disposition home or self-care (01) ==
PROVIDERS: PCP Nurse Practitioner Family; Visit Provider Nurse Practitioner Family
DX: M25.552 Pain in left hip (principal); M25.551 Pain in right hip; R10.2 Pelvic and perineal pain; N83.201 Unspecified ovarian cyst, right side
CPT/HCPCS: 73521; 76830; 76856

== ENCOUNTER 2024-10-05 16:27 | Outpatient (RCR) | payer OTHER, SELFPAY ==
--- NOTE | 2024-10-05 17:14 | OPREHPOC ---
Outpatient Therapy Plan of Care This is a Multidisciplinary Plan of Care that may contain components documented by all disciplines (PT, OT, and ST.) PT Problem 1 PT Problem #1 Knowledge Deficit PT Goal 1 Goal / Goal Update independent and compliant with HEP Target Visit 6 PT Problem 2 PT Problem #2 Pain PT Goal 1 Goal / Goal Update decrease pain at worst to 2/10 or less in the lower back Target Visit 12 PT Problem 3 PT Problem #3 Impaired Strength PT Goal 1 Goal / Goal Update bilateral hip strength to 4+/5 or better core strength to 4/5 Target Visit 12 PT Problem 4 PT Problem #4 Impaired Range of Motion PT Goal 1 Goal / Goal Update 100% arom lumbar mobility without pain PT Problem 5 PT Problem #5 Impaired Functional Mobility PT Goal 1 Goal / Goal Update oswestry to display 20% or less functional deficits patient to tolerate sitting and standing for 1 hour or more without pain patient to complete 15 minutes ambulation without rest safe squat and lift mechanics of 20 lbs from floor to waist patient to report no issues waking up and getting dressed in the morning Target Visit 12
--- NOTE | 2024-10-05 17:15 | PTOPEVAL1 ---
Assessment and note entered by JT File, PT Evaluation Information Assessment Status Evaluation ICD-10 Condition Codes (PT) Pain in low back M54.50 Onset 08/05/24 Subjective Information patient reports she has been having pain in the lower back and in her bilateral posterior hips. she reports it is hard to get up from laying down. she reports she has the worst pain in the mornings. she reports she also has increased pain with prolonged position holds sitting and standing . she reports when the pain is severe in the mornings it is hard to bend forward to put on her pants and clothes. she reports she had a back and hip xrays. she reports no known injury. Reported Pain Level Pain Score 5: Self Report Assessment PT Clinical Summary mrs. elizabeth is a 39 yo woman who presents to skilled PT services for evaluation and treatment of lower back pain. she presents today with deficits in lumbar rom, hip strength, and functional activity performance. her signs and symptoms are consistent with lumbar DDD/ spondylosis. continued skilled PT is indicated to improve her objective/functional deficits to return to her prior level functional activity performance and quality of life. Plan of Care Interventions Electrical Stimulation,Hot Pack/Cold Pack,Manual Therapy,Mechanical Traction,Neuro Re-education, Patient/Caregiver Education,Therapeutic Activities ,Therapeutic Exercise PT Services Indicated Yes Treatment Frequency and 3x weekly for 12 visits Duration These treatments will address the objective and functional deficits as defined above. The patient will be advanced safely and appropriately in order for the patient to progress towards his/her prior level of function. Additional exercises will be introduced and as well as a comprehensive home exercise program upon discharge, if needed, ?to ensure carryover of functional gains achieved in the clinic. This treatment plan has been reviewed and agreement upon by the patient.
--- NOTE | 2024-10-09 16:57 | PCPTNOTE ---
Patient called & cancelled scheduled appointment this date.
--- NOTE | 2024-10-10 16:55 | PCPTNOTE ---
Patient did not show up for scheduled appointment this date. -Ruth Ying, PT
--- NOTE | 2024-11-27 16:25 | PCPTNOTE ---
pt attends therapy for her initial evaluation and has not attended therapy since. Left message and have not heard back. pt is being discharged from therapy.
== END 2024-10-05 20:00 | disposition home or self-care (01) ==
LOC: CHSPT 16:27
PROVIDERS: PCP Nurse Practitioner Family; Visit Provider Nurse Practitioner Family
DX: M54.50 Low back pain, unspecified (principal)
CPT/HCPCS: 97014; 97110; 97161; G0283